=== PATIENT | female | born 1965 | race Two or more races ===

== ENCOUNTER 2016-05-13 09:50 | Emergency (ER) | payer SELFPAY ==
[2016-05-13 09:56] VITALS: BP 140/96; PULSE 82; TEMP 98.4; BMI 27.7
[2016-05-13] MEDS ORDERED: TETANUS AND DIPHTHERIA TOXOID 0.5 ML DISP.SYRIN IM ONE (11:32)
--- NOTE | 2016-05-13 11:32 | PDOC ---
Post Exposure HPI - General Chief Complaint: Non EmpBld/Body Flud Exposure Stated Complaint: NEEDLE STICK, POSSIBLE EXPOSURE Time Seen by Provider: 05/13/16 11:16 History Source: Patient Exam Limitations: No Limitations - History of Present Illness Initial Comments: CHIEF COMPLAINT: 51 y/o afebrile female, employee at [employer], here after a needle stick to right finger today. HISTORY OF PRESENT ILLNESS: The patient got stuck in her in the right 2nd finger. The patient states it bled a very little bit and she cleaned it with soap and water. The patient is unsure of the person's HIV/Hep status whose needle she was stuck with. She thinks they can find out at [employer]. She wants baseline labs drawn and HIV testing but is refusing prophylaxis at this time. Vital signs on arrival are within normal limits. REVIEW OF SYSTEMS: GENERAL/CONSTITUTIONAL: No fever/chills. No weakness. No weight change. HEAD, EYES, EARS, NOSE AND THROAT: No change in vision. No ear pain or discharge. No sore throat. MUSCULOSKELETAL: No joint or muscle swelling or pain. No neck or back pain. SKIN: +finger stick to right 2nd finger NEUROLOGIC: No headache, vertigo, loss of consciousness, or loss of sensation. PHYSICAL EXAM: GENERAL: The patient is awake, alert, and fully oriented, in no acute distress. HEAD: Normal with no signs of trauma. EXTREMITIES: Normal range of motion, no edema. NEUROLOGICAL: Normal speech, normal gait. CN II-XII grossly intact. SKIN: Pinprick sized abrasion to tip of right 2nd digit. No bleeding. Past History - Past Medical History Allergies/Adverse Reactions: Allergies No Known Allergies Allergy (Verified 05/13/16 09:56) Home Medications: Ambulatory Orders Levothyroxine Sodium [Unithroid] 125 mcg PO DAILY 05/13/16 - Social History Smoking Status: Never smoked *Physical Exam - Vital Signs Last Vital Signs Temp Pulse Resp BP Pulse Ox 98.4 F 82 20 140/96 99 05/13/16 09:53 05/13/16 09:53 05/13/16 09:53 05/13/16 09:53 05/13/16 09:53 Post Exposure - ED Protocol - Exposure Treatment Washing/Decontamination: Soap/Water Source Patient HIV Status:: Unknown Is PEP indicated?: No Prophylaxis for HIV discussed?: Yes Prophylaxis given?: No Prophylaxis refused?: Yes Drug(s) Information Sheets given:: Yes Baseline bloods drawn prophylaxis:(use *Exposure-Hosp Emp): Yes Additional Treatment:: DT - Referrals Employee Referred to Employee Health:: Yes City Worker referred to Infection Control Dept.: Yes Medical Decision Making - Medical Decision Making A/P: 51 y/o afebrile female with needle stick at [employer] today. She thinks they can find out at [employer] if the patient has HIV/Hep and does not want prophylaxis at this time. She does want baseline testing and will give tetanus. HIV negative Pt given instructions to come back within 48 hours if she decides to take prophylaxis. The patient verbalizes understanding of all instructions, has no further questions and is awaiting discharge. *DC/Admit/Observation/Transfer Diagnosis at time of Disposition: Needle stick injury of finger, History of exposure to blood or body fluid - Discharge Dispostion Disposition: HOME Condition at time of disposition: Good - Referrals Referrals: Sergei Gonzalez MD [Primary Care Provider] - - Patient Instructions Printed Discharge Instructions: How to Handle Body Fluid Exposure -- Non- Healthcare Worker (At Home, [facility] - Post Discharge Activity Work/School Note: Back to Work
[2016-05-13 11:54] LABS: BASOPHIL 0.8 % (0-2.0); EOSINOPHIL 0.9 % (0-4.5); MCH 27.3 pg (25.7-33.7); MCHC 32.5 g/dl (32.0-36.0); MEAN CELL VOLUME 83.9 fl (80-96); MEAN PLT VOLUME 8.8 fl (7.5-11.1); NEUTROPHILS 61.8 % (42.8-82.8); PLATELET COUNT 211 K/MM3 (134-434); RDW 14.4 % (11.6-15.6); WHITE BLOOD COUNT 5.4 K/mm3 (4.0-10.0)
[2016-05-13 12:33] LABS: ALBUMIN 4.2 g/dl (3.4-5.0); ANION GAP 9 (8-16); CALCIUM 9.1 mg/dL (8.5-10.1); CHOLESTEROL 162 mg/dL (50-200); CO2 30 mmol/L (21-32); CREATININE 0.8 mg/dL (0.55-1.02); GLUCOSE,RANDOM 85 mg/dL (74-106); PHOSPHOROUS 3.6 mg/dL (2.5-4.9); SGOT/AST 12 U/L (15-37); SGPT/ALT 24 U/L (12-78); TOT PROT 7.7 g/dl (6.4-8.2); URIC ACID 3.8 mg/dL (2.6-7.2)
[2016-05-13 12:35] LABS: ALK PHOS 54 U/L (45-117); BILIRUBIN,TOTAL 0.6 mg/dL (0.2-1.0); LDH 136 U/L (84-246)
[2016-05-13 13:12] LABS: HIV 1 & 2 AB NEGATIVE; HIV 1 AGp24 NEGATIVE
[2016-05-14 08:07] LABS: HEP B SURFACE AB Reactive (.)
== END 2016-05-13 13:17 | disposition home or self-care (01) ==
LOC: JERFT 09:50
PROC: 3E0234Z Introduction of Serum, Toxoid and Vaccine into Muscle, Percutaneous Approach (ICD-10-PCS; principal; 2016-05-13)
DX: S61.230A Puncture wound without foreign body of right index finger without damage to nail, initial encounter (principal); W46.1XXA Contact with contaminated hypodermic needle, initial encounter; Y93.89 Activity, other specified; Y92.129 Unspecified place in nursing home as the place of occurrence of the external cause; Y99.0 Civilian activity done for income or pay
CPT/HCPCS: 36415; 80053; 82465; 82977; 83615; 84100; 84478; 84550; 85025; 86704; 86706; 87340; 87389; 99281-25